=== PATIENT | male | born 1990 | race Caucasian/White ===

== ENCOUNTER 2020-11-11 12:41 | Emergency (ER) | payer MEDICAID ==
[~2020-11-11] VITALS: Ht 170.2 cm; Wt 61.7 kg
[2020-11-11 12:49] VITALS: BP 111/57
--- NOTE | 2020-11-11 12:53 | NUR ---
PT AMBULATED TO BED 9, STEADY GAIT.
--- NOTE | 2020-11-11 12:59 | NUR ---
30 Y/O MALE PRESENTS TO ED WITH PAINFUL URINATION, HEMATURIA, AND WHITE PENILE DISCHARGE X 3 DAYS. PT RATES PAIN 3/10 AT THE MOMENT BUT STATES THAT PAIN INCREASES TO A 6/10 DURING URINATION. PT DESCRIBES THE PAIN BURNING AND IT IS CONSTANT. DENIES TAKING ANYTHING FOR PAIN. PT DENIES UNPROTECTED SEX BUT STATES THAT HE PEED IN A WATER BOTTLE THAT OTHERS ALSO PEED IN. PT DENIES N/V/FEVER. PT A/O X4 WITH EVEN AND UNLABORED RESPIRATIONS. PMH-INSOMMNIA, DEPRESSION RX- METAZAPINE, EFFEXOR NKDA
--- NOTE | 2020-11-11 13:15 | NUR ---
Urine walked to laboratory and given to test lab technician.
[2020-11-11] MEDS ORDERED: cefTRIAXone 500 MG in LIDOCAINE MPF 1% 1 ML IM ONE (13:20)
[2020-11-11] MEDS ORDERED: cefTRIAXone 500 MG VIAL ONE (13:24)
[2020-11-11] MEDS ORDERED: LIDOCAINE MPF 1% 5 ML ONE (13:24)
--- NOTE | 2020-11-11 13:32 | NUR ---
lab systems analyst at the bedside drawing blood
[2020-11-11] MEDS ORDERED: DOXY100C9 PO (13:36)
[2020-11-11] MEDS ORDERED: CEPH-588 PO (13:36)
[2020-11-11 14:06] LABS: RAPID PLASMA REAGIN NON-REACTIVE (Non Reactiv)
[2020-11-11 14:18] VITALS: BP 111/57
--- NOTE | 2020-11-11 14:18 | NUR ---
Patient discharged with v/s stable. Written and verbal after care instructions given and explained. Patient alert, oriented and verbalized understanding of instructions. Ambulatory with steady gait. All questions addressed prior to discharge. ID band removed. Patient advised to follow up with PMD. Rx of VIBRAMYCIN, KEFLEX given. Patient educated on indication of medication including possible reaction and side effects. Opportunity to ask questions provided and answered.
== END 2020-11-11 14:18 | disposition home or self-care (01) ==
LOC: MED 12:41
DX: N39.0 Urinary tract infection, site not specified (principal); F32.9 Major depressive disorder, single episode, unspecified; G47.00 Insomnia, unspecified; F12.90 Cannabis use, unspecified, uncomplicated; Z79.899 Other long term (current) drug therapy
CPT/HCPCS: 36415; 81002; 86592; 86703; 87491; 96372; 99283; J0696; J2001

== ENCOUNTER 2020-12-08 19:48 | Emergency (ER) | payer MEDICAID ==
[~2020-12-08] VITALS: Ht 170.2 cm; Wt 68.0 kg
[~2020-12-08 19:48] MED LIST: CEPH-588 PO; DOXY100C9 PO
[2020-12-08 19:58] VITALS: BP 126/73
[2020-12-08] MEDS ORDERED: PHENAZOPYRIDINE 100 MG TAB PO ONE (20:15)
[2020-12-08] MEDS ORDERED: cefTRIAXone 500 MG in LIDOCAINE MPF 1% 1 ML IM ONE (20:15)
[2020-12-08] MEDS ORDERED: DOXYCYCLINE 100 MG CAP PO STA (20:15)
[2020-12-08] MEDS ORDERED: PYR100 PO (20:22)
[2020-12-08] MEDS ORDERED: DOXY100C9 PO (20:22)
[2020-12-08] MEDS ORDERED: LIDOCAINE MPF 1% 5 ML ONE (20:40)
[2020-12-08] MEDS ORDERED: cefTRIAXone 500 MG VIAL ONE (20:40)
--- NOTE | 2020-12-08 21:00 | NUR ---
URINARY BURNING X 4 DAYS. DENIES ANY BLOOD IN URINE. NO N,V, OR FEVERS. 04/04 LOCATED IN [facility]. [facility]: NONE. Addendum: 12/08/20 at 2205 by SUZETTE TIME 2020
--- NOTE | 2020-12-08 21:02 | NUR ---
DR. REESE AT BEDSIDE EXAMINING PATIENT
--- NOTE | 2020-12-08 21:08 | NUR ---
Patient discharged with v/s stable. Written and verbal after care instructions given and explained. Patient alert, oriented and verbalized understanding of instructions. Ambulatory with steady gait. All questions addressed prior to discharge. ID band removed. Patient advised to follow up with PMD. Rx of DOXYCYCLINE AND PYRIDIUM given. Patient educated on indication of medication including possible reaction and side effects. Opportunity to ask questions provided and answered.
== END 2020-12-08 21:08 | disposition home or self-care (01) ==
LOC: MED 19:48
DX: A64 Unspecified sexually transmitted disease (principal); R30.0 Dysuria; F17.210 Nicotine dependence, cigarettes, uncomplicated; F12.90 Cannabis use, unspecified, uncomplicated; Z79.899 Other long term (current) drug therapy
CPT/HCPCS: 36415; 96372; 99283; J0696; J2001; 87491

== ENCOUNTER 2021-06-22 13:03 | Emergency (ER) | payer MEDICAID ==
[~2021-06-22] VITALS: Ht 170.2 cm; Wt 60.8 kg
[~2021-06-22 13:03] MED LIST changes: +DOXY-690 PO; -DOXY100C9 PO; +PYR100 PO
[2021-06-22 13:14] VITALS: BP 140/78
[2021-06-22 13:59] LABS: BASOPHILS # (AUTO) 0.1 K/uL (0.00-0.22); BASOPHILS % (AUTO) 0.7 % (0.0-2.0); EOSINOPHILS # (AUTO) 0.1 K/uL (0-0.4); EOSINOPHILS % (AUTO) 0.7 % (0.0-4.0); HEMATOCRIT 40.8 % (36-52); HEMOGLOBIN 13.7 g/dL (12.0-18.0); LYMPHOCYTES # (AUTO) 1.6 K/uL (2.0-11.5); LYMPHOCYTES % (AUTO) 18.6 % (20.5-51.1); MEAN CORPUSCULAR HEMOGLOBIN 31 pg (27-31); MEAN CORPUSCULAR HGB CONC 34 g/dL (33-37); MEAN CORPUSCULAR VOLUME 92.1 fL (80-94); MONOCYTES % (AUTO) 12.3 % (1.7-9.3); NEUTROPHILS # (AUTO) 5.8 K/uL (1.8-7.7); NEUTROPHILS % (AUTO) 67.7 % (42.2-75.2); PLATELET COUNT (AUTO) 270 K/uL (140-450); RED BLOOD CELL COUNT(AUTO) 4.42 MIL/uL (4.20-6.10); RED CELL DISTRIBUTION WIDTH 13.8 % (11.6-13.7); WHITE BLOOD COUNT (AUTO) 8.5 K/uL (4.8-10.8)
--- NOTE | 2021-06-22 14:06 | NUR ---
PT AMBULATED TO CHAIR C
[2021-06-22 14:32] LABS: ALBUMIN 3.9 g/dL (3.4-5.0); ANION GAP 17.2 (8-16); ASPARTATE AMINOTRANSFERASE 36 U/L (15-37); CARBON DIOXIDE 23.9 mmol/L (21-32); CHLORIDE 102 mmol/L (98-107); CREATININE 1.2 mg/dL (0.6-1.3); GFR ARICAN-AMERICAN 90 mL/min (>90); GLUCOSE 122 mg/dL (74-106); POTASSIUM 4.1 mmol/L (3.5-5.1); SODIUM SERUM 139 mmol/L (136-145); TOTAL BILIRUBIN 0.6 mg/dL (0.0-1.0); UREA NITROGEN, BLOOD 24 mg/dL (7-18)
[2021-06-22 14:33] LABS: SALICYLATE < 2.8 mg/dL (2.8-20.0)
[2021-06-22 14:34] LABS: ACETAMINOPHEN < 0.5 ug/ml (10-30)
--- NOTE | 2021-06-22 15:00 | NUR ---
PT IN THE BATHROOM CHANGING. ALL BELONGINGS TAKEN.
--- NOTE | 2021-06-22 15:11 | NUR ---
30 Y/O M C/O SI FOR PAST 3 DAYS. PT PLANNING TO HARM HIMSELF AND OTHERS. PT DENIES HALLUCINATIONS. PT ALSO DENIES ANY PLAN TO HARM OTHERS OR HIMSELF. PMH: ASTHMA, SCHIZOPHRENIA MEDS: ZYPREXA, METAZAPINE
[2021-06-22 15:22] LABS: APPEARANCE,URINE CLEAR (CLEAR); BILIRUBIN,URINE NEGATIVE (NEGATIVE); BLOOD, URINE NEGATIVE (NEGATIVE); COLOR,URINE YELLOW (YELLOW); LEUKOCYTE ESTERASE ,URINE NEGATIVE (NEGATIVE); NITRITE, URINE NEGATIVE (NEGATIVE); UGLUCOSE 1+ (NEGATIVE)
[2021-06-22 15:35] LABS: BARBITURATE, URINE NEGATIVE ng/ml (NEG <=200); BENZODIAZEPINE, URINE NEGATIVE ng/mL (NEG <=200); COCAINE, URINE NEGATIVE ng/mL (NEG <=300)
[2021-06-22 15:36] LABS: CANNABINOID, URINE POSITIVE ng/mL (NEG <=50); OPIATE, URINE NEGATIVE ng/mL (NEG <=2000); PHENCYCLIDINE SCREEN,URINE NEGATIVE ng/mL (NEG <=25)
--- NOTE | 2021-06-22 17:40 | NUR ---
LAVERN TALIKING WITH DR Quispe
[2021-06-22] MEDS ORDERED: OLANZapine 5 MG ODT ONE (18:57)
--- NOTE | 2021-06-22 19:02 | NUR ---
PT EATING HIS DINNER.
--- NOTE | 2021-06-22 19:24 | NUR ---
GAVE REPORT TO CYN CAMPUZANO.
--- NOTE | 2021-06-22 23:00 | NUR ---
SPOKE WITH CLAU, CHICKEN HATCHERY HELPER FROM [facility]. DR HAYES WILL ACCEPT THE PATIENT. TRANSPORTATION ARRANGED TO [facility], BED 122A.
--- NOTE | 2021-06-22 23:30 | NUR ---
Oswald moore in [facility] - 06/23/21 at 0021 by [email or web address] REPORT GIVEN TO RIZWANA WILHELM [phone]
--- NOTE | 2021-06-22 23:30 | NUR ---
REPORT GIVEN TO RIZWANA CAMPUZANO. [phone]
--- NOTE | 2021-06-23 02:33 | NUR ---
[facility] AT BEDSIDE FOR TRANSPORT TO [facility]
[2021-06-23 02:51] VITALS: BP 103/69
--- NOTE | 2021-06-23 02:55 | NUR ---
Patient to be transferred to [facility]. Is being transferred due to TRANSFER TO A [facility]IATR[facility] FACILITY. Receiving facility has accepting physician and available space. ER physician has signed transfer form. Patient or responsible libertarian has agreed to transfer and signed form. Patient belongings inventoried and will be sent with patient. Copy of nursing notes, lab reports, EKG, Physicians Orders and X-rays to be sent with patient. Report called to RIZWANA RN at receiving facility. [facility] ambulance service has been called for transfer. ETA is 1HR. PT VSS, A/OX4, UNLABORED BREATHING, AND STEADY GAIT.
[2021-06-23] MEDS ORDERED: OLANZapine 5 MG ODT PO ONE (17:00)
== END 2021-06-23 02:55 ==
LOC: MED 13:03
DX: R45.851 Suicidal ideations (principal); F32.9 Major depressive disorder, single episode, unspecified; F20.9 Schizophrenia, unspecified; J45.909 Unspecified asthma, uncomplicated; E07.9 Disorder of thyroid, unspecified; Z20.822 Contact with and (suspected) exposure to COVID-19
CPT/HCPCS: 36415; 80053; 80305; 81003; 85025; 87426; 99285; G0480; G0482; U0003